=== PATIENT | male | born 1965 | race Hispanic/Latino ===

== ENCOUNTER 2024-05-11 07:36 | Emergency (ER) | payer MEDICARE ==
[2024-05-11] MEDS ORDERED: Acetaminophen 500 MG TAB ONE (07:57)
== END 2024-05-11 08:04 | disposition home or self-care (01) ==
LOC: BURERS 07:36
DX: H92.01 Otalgia, right ear (principal); I25.2 Old myocardial infarction; Z87.891 Personal history of nicotine dependence; I25.10 Atherosclerotic heart disease of native coronary artery without angina pectoris; Z95.0 Presence of cardiac pacemaker
CPT/HCPCS: 99282